=== PATIENT | female | born 2000 | race Caucasian/White ===

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

== ENCOUNTER 2019-03-15 21:52 | Emergency (ER) | payer OTHER ==
[~2019-03-15] VITALS: Ht 152.4 cm; Wt 63.5 kg
[~2019-03-15 21:52] MED LIST changes: +ZOFRAN ODT4 MG DISSOLVE
[2019-03-15] MEDS ORDERED: PYRIDIUM200 M2 PO (22:07)
[2019-03-15] MEDS ORDERED: CIPRO500 M1 PO (22:07)
[2019-03-15 22:54] LABS: ABSOLUTE BASOPHILS 0.1 thou/uL (0.0-0.2); ABSOLUTE EOSINOPHILS 0.2 thou/uL (0.0-0.7); ABSOLUTE LYMPHOCYTES 2.9 thou/uL (0.8-5.3); ABSOLUTE MONOCYTES 0.7 thou/uL (0.0-1.2); ABSOLUTE NEUTROPHILS 5.4 thou/uL (1.6-8.1); BASOPHILS 0.9 %; EOSINOPHILS 1.8 %; HEMOGLOBIN 13.7 gm/dL (12.0-15.0); MCH 28.8 pg (26.0-34.0); MCHC 34.2 g/dL (28.0-37.0); MCV 84.3 fL (80.0-100.0); MONOCYTES 7.7 %; MPV 8.1 fl. (7.2-11.1); NUCLEATED RBCS 0 /100WBC; PLATELET COUNT* 335 thou/uL (150-400); POLYS 58.6 %; RBC 4.75 mil/uL (4.20-5.00); WBC 9.2 thou/uL (4.0-11.0)
[2019-03-15 23:00] LABS: URINE CLARITY CLEAR; URINE COLOR ORANGE; URINE KETONES NEGATIVE (Negative); URINE REDUCING SUBSTANCE NEGATIVE (Negative)
[2019-03-15 23:01] LABS: URINE BILIRUBIN NEGATIVE (Negative); URINE BLOOD ND (Negative); URINE GLUCOSE-RANDOM ND (Negative); URINE LEUKOCYTES-REFLEX ND (Negative); URINE NITRITE-REFLEX ND (Negative); URINE UROBILINOGEN ND E.U./dl (0.2-1.0)
[2019-03-15 23:03] LABS: CALCIUM 9.6 mg/dL (8.5-10.1); CREATININE 0.7 mg/dL (0.6-1.3); POTASSIUM 4.3 mmol/L (3.5-5.1)
[2019-03-15 23:09] LABS: URINE PROTEIN ND (Negative); URINE SPECIFIC GRAVITY > 1.030 (1.005-1.030)
[2019-03-15 23:20] LABS: CASTS None Seen /LPF (None Seen); SQUAMOUS >10 Many /LPF (0-3)
[2019-03-15 23:21] LABS: CRYSTALS None Seen /LPF (None Seen); URINE RBC None Seen /HPF (0-2); URINE WBC-REFLEX 6-15 Few /HPF (0-5)
[2019-03-15 23:22] LABS: WBC CLUMPS Few (None Seen)
[2019-03-15] MEDS ORDERED: HYDROCODON-ACE1 EAC8 PO (23:35)
[2019-03-15] MEDS ORDERED: MACROBID 100 M100 M1 PO (23:35)
[2019-03-16 00:07] VITALS: BP 110/57
[2019-03-17] MEDS ORDERED: ONDANSETRON ODT4 MG PO (15:40)
[2019-03-17] MEDS ORDERED: DOXYCYCLINE 10100 MG PO (15:40)
[2019-03-17] MEDS ORDERED: TYLENOL WITH CO1 TA1 PO (15:40)
== END 2019-03-16 00:09 | disposition home or self-care (01) ==
LOC: M.ERS 21:52
PROVIDERS: Emergency Medicine
DX: N39.0 Urinary tract infection, site not specified (principal); Z87.440 Personal history of urinary (tract) infections

== ENCOUNTER 2019-03-17 11:52 | Emergency (ER) | payer OTHER ==
[~2019-03-17] VITALS: Ht 152.4 cm; Wt 63.5 kg
[~2019-03-17 11:52] MED LIST changes: +CIPRO500 M1 PO; +HYDROCODON-ACE1 EAC8 PO; +MACROBID 100 M100 M1 PO; +PYRIDIUM200 M2 PO
[2019-03-17 12:14] LABS: URINE BILIRUBIN NEGATIVE (Negative); URINE BLOOD NEGATIVE (Negative); URINE CLARITY CLEAR; URINE COLOR YELLOW; URINE GLUCOSE-RANDOM NEGATIVE (Negative); URINE KETONES NEGATIVE (Negative); URINE LEUKOCYTES-REFLEX 1+ (Negative); URINE NITRITE-REFLEX POSITIVE (Negative); URINE PROTEIN NEGATIVE (Negative); URINE UROBILINOGEN 0.2 E.U./dl (0.2-1.0)
[2019-03-17 12:20] LABS: BACTERIA-REFLEX 1-9 Few /HPF (None Seen); CASTS None Seen /LPF (None Seen); CRYSTALS None Seen /LPF (None Seen); MUCUS 0-3 Light strn/LPF (None Seen); SQUAMOUS 4-10 Moderate /LPF (0-3); URINE RBC 0-2 Rare /HPF (0-2); URINE WBC-REFLEX 6-15 Few /HPF (0-5)
[2019-03-17 13:13] LABS: ABSOLUTE EOSINOPHILS 0.1 thou/uL (0.0-0.7); ABSOLUTE LYMPHOCYTES 1.9 thou/uL (0.8-5.3); ABSOLUTE MONOCYTES 0.5 thou/uL (0.0-1.2); ABSOLUTE NEUTROPHILS 5.1 thou/uL (1.6-8.1); BASOPHILS 0.6 %; EOSINOPHILS 1.8 %; HEMATOCRIT 43.9 % (37.0-47.0); HEMOGLOBIN 14.7 gm/dL (12.0-15.0); LYMPHOCYTES 24.7 %; MCH 28.5 pg (26.0-34.0); MCHC 33.5 g/dL (28.0-37.0); MCV 85.1 fL (80.0-100.0); MPV 8.5 fl. (7.2-11.1); NUCLEATED RBCS 0 /100WBC; PLATELET COUNT* 351 thou/uL (150-400); POLYS 65.9 %; RBC 5.16 mil/uL (4.20-5.00); RDW-CV 13.2 % (10.5-14.5); WBC 7.8 thou/uL (4.0-11.0)
[2019-03-17 13:23] LABS: CALCIUM 9.4 mg/dL (8.5-10.1); CREATININE 0.8 mg/dL (0.6-1.3); POTASSIUM 3.7 mmol/L (3.5-5.1)
[2019-03-17 13:28] LABS: ALBUMIN 3.8 g/dL (3.4-5.0); TOTAL BILIRUBIN 0.4 mg/dL (<0.1-1.0); TOTAL PROTEIN 7.7 g/dL (6.4-8.2)
[2019-03-17] MEDS ORDERED: DOXYCYCLINE 10100 MG PO (15:40)
[2019-03-17] MEDS ORDERED: ONDANSETRON ODT4 MG PO (15:40)
[2019-03-17] MEDS ORDERED: TYLENOL WITH CO1 TA1 PO (15:40)
[2019-03-17 15:57] VITALS: BP 113/74
== END 2019-03-17 15:59 | disposition home or self-care (01) ==
LOC: M.ERS 11:52
PROVIDERS: Physician Assistant
DX: N73.9 Female pelvic inflammatory disease, unspecified (principal); N39.0 Urinary tract infection, site not specified

== ENCOUNTER 2020-06-21 12:21 | Emergency (ER) | payer OTHER ==
[~2020-06-21] VITALS: Ht 152.4 cm; Wt 68.0 kg
[~2020-06-21 12:21] MED LIST changes: +DOXYCYCLINE 10100 MG PO; +ONDANSETRON ODT4 MG PO; +TYLENOL WITH CO1 TA1 PO
[2020-06-21 12:35] LABS: URINE BILIRUBIN NEGATIVE (Negative); URINE BLOOD NEGATIVE (Negative); URINE CLARITY CLEAR; URINE COLOR YELLOW; URINE GLUCOSE-RANDOM NEGATIVE (Negative); URINE KETONES NEGATIVE (Negative); URINE LEUKOCYTES-REFLEX 2+ (Negative); URINE NITRITE-REFLEX NEGATIVE (Negative); URINE PROTEIN NEGATIVE (Negative); URINE SPECIFIC GRAVITY >= 1.030 (1.005-1.030); URINE UROBILINOGEN 0.2 E.U./dl (0.2-1.0)
[2020-06-21 12:43] LABS: CASTS None Seen /LPF (None Seen); CRYSTALS None Seen /LPF (None Seen); MUCUS 0-3 Light strn/LPF (None Seen); SQUAMOUS 4-10 Moderate /LPF (0-3); URINE RBC 0-2 Rare /HPF (0-2); URINE WBC-REFLEX 6-15 Few /HPF (0-5)
[2020-06-21 12:55] LABS: ABSOLUTE BASOPHILS 0.1 thou/uL (0.0-0.2); ABSOLUTE EOSINOPHILS 0.2 thou/uL (0.0-0.7); ABSOLUTE LYMPHOCYTES 2.9 thou/uL (0.8-5.3); ABSOLUTE MONOCYTES 0.8 thou/uL (0.0-1.2); ABSOLUTE NEUTROPHILS 8.8 thou/uL (1.6-8.1); BASOPHILS 0.4 %; EOSINOPHILS 1.6 %; HEMATOCRIT 43.7 % (37.0-47.0); HEMOGLOBIN 14.5 gm/dL (12.0-15.0); LYMPHOCYTES 22.5 %; MCH 27.9 pg (26.0-34.0); MCHC 33.3 g/dL (28.0-37.0); MCV 83.9 fL (80.0-100.0); MONOCYTES 6.6 %; MPV 7.8 fl. (7.2-11.1); NUCLEATED RBCS 0 /100WBC; PLATELET COUNT* 398 thou/uL (150-400); POLYS 68.9 %; RDW-CV 13.7 % (10.5-14.5); WBC 12.7 thou/uL (4.0-11.0)
[2020-06-21 13:00] LABS: CALCIUM 9.5 mg/dL (8.5-10.1); CREATININE 0.8 mg/dL (0.6-1.3)
[2020-06-21 13:05] LABS: ALBUMIN 3.8 g/dL (3.4-5.0); TOTAL BILIRUBIN 0.4 mg/dL (<0.1-1.0); TOTAL PROTEIN 8.1 g/dL (6.4-8.2)
[2020-06-21] MEDS ORDERED: ONDANSETRON HCL4 M2 PO (14:08)
[2020-06-21] MEDS ORDERED: BACTRIM DS TAB1 EACH PO (14:08)
[2020-06-21] MEDS ORDERED: APAP W/CODEINE1 TA2 PO (14:08)
[2020-06-21] MEDS ORDERED: VISTARIL 25 MG25 M1 PO (14:10)
[2020-06-21 14:19] VITALS: BP 98/73
== END 2020-06-21 14:20 | disposition home or self-care (01) ==
LOC: M.ERS 12:21
PROVIDERS: Physician Assistant
DX: N39.0 Urinary tract infection, site not specified (principal)